=== PATIENT | male | born 1975 | race Two or more races ===

== ENCOUNTER 2017-03-04 21:55 | Emergency (ER) | payer MEDICAID ==
[~2017-03-04] VITALS: Ht 172.7 cm; Wt 81.6 kg
[~2017-03-04 21:55] MED LIST: ASPIRIN81 MG ORAL; ATORVASTATIN CA10 MG ORAL; IBUPROFEN600 MG ORAL; METFORMIN HCL500 M1 ORAL; NOVOLOG100 UNIT/3 SUBQ
[2017-03-04 22:03] VITALS: BP 121/78
[2017-03-04] MEDS ORDERED: ALBUTEROL2.5 MG/3 M INH (22:04)
[2017-03-04] MEDS ORDERED: Albuterol/Ipratropium 3ml neb HHN ONE (22:30)
[2017-03-04] MEDS ORDERED: ALBUTEROL SULF8.5 GM INH (23:09)
[2017-03-04] MEDS ORDERED: PREDNISONE20 MG ORAL (23:09)
--- NOTE | 2017-03-04 23:10 | Emergency Room Report ---
History of Present Illness General Chief Complaint: Dyspnea/Respdistress Source: Patient Present Illness HPI Is a 41-year-old male with a history of asthma. He is out of his inhaler for the last 2 days. Presents with chief complaint of shortness of breath and wheezing. Onset tonight. Also with chest tightness and pain. No nausea no vomiting. Worse with exertion. Admits to daily use of methamphetamine. Allergies: Coded Allergies: No Known Allergies (Unverified , 09/28/12) Patient History Past Medical History: see triage record, old chart reviewed, asthma Past Surgical History: none Pertinent Family History: none Social History: Reports: smoking, drug use Immunizations: other Reviewed Nursing Documentation: PMH: Agreed, PSxH: Agreed Nursing Documentation-PMH Hx Asthma: Yes Hx Diabetes: Yes Review of Systems Eye: Denies: eye pain, blurred vision ENT: Denies: ear pain, nose congestion, throat swelling Respiratory: Reports: cough, shortness of breath, wheezing Cardiovascular: Reports: chest pain, Denies: palpitations Gastrointestinal: Denies: abdominal pain, diarrhea, nausea, vomiting Musculoskeletal: Denies: back pain, joint pain Skin: Denies: rash Neurological: Denies: headache, numbness Endocrine: Denies: increased thirst, increased urine Hematologic/Lymphatic: Denies: easy bruising All Other Systems: negative except mentioned in HPI Physical Exam Vital Signs Date Time Temp Pulse Resp B/P (MAP) Pulse Ox O2 Delivery O2 Flow Rate FiO2 03/04/17 22:01 98.4 92 13 121/78 99 Room Air vitals normal Sp02 EP Interpretation: reviewed, normal General Appearance: well appearing, no apparent distress, alert Head: normocephalic, atraumatic Eyes: bilateral eye PERRL, bilateral eye EOMI ENT: hearing grossly normal, normal pharynx Neck: full range of motion, supple, no meningismus Respiratory: chest non-tender, accessory muscle use, wheezing Cardiovascular #1: regular rate, rhythm, no murmur Gastrointestinal: normal bowel sounds, non tender, no mass, no organomegaly, no bruit, non-distended Musculoskeletal: back normal, gait/station normal, normal range of motion Psychiatric: mood/affect normal Skin: warm/dry Medical Decision Making Diagnostic Impression: Primary Impression: Asthma exacerbation Qualified Codes: J45.21 - Mild intermittent asthma with (acute) exacerbation Additional Impression: Methamphetamine abuse ER Course Patient presents with asthma exacerbation secondary to drug abuse. No evidence of ACS, PE, pneumonia, pneumothorax name a few. Better after breathing treatment. Chest x-rays clear. We'll discharge home. Chest X-Ray Diagnostic Results Chest X-Ray Diagnostic Results : Chest X-Ray Ordered: Yes # of Views/Limited/Complete: 1 View Indication: Shortness of Breath EP Interpretation: Yes Interpretation: no consolidation, no effusion, no pneumothorax, no acute cardiopulmonary disease Impression: No acute disease Electronically Signed by: Bob Cornell MD Last Vital Signs Date Time Temp Pulse Resp B/P (MAP) Pulse Ox O2 Delivery O2 Flow Rate FiO2 03/04/17 22:35 91 19 100 Room Air 03/04/17 22:03 98.4 121/78 Status: improved Disposition: HOME, SELF-CARE Condition: Stable Scripts Prednisone* (PREDNISONE*) 20 Mg Tablet 60 MG ORAL DAILY, #12 TAB Prov: BOB CORNELL M.D. 03/04/17 Albuterol Sulfate* (ALBUTEROL SULFATE MDI*) 8.5 Gm Hfa.aer.ad 2 PUFF INH Q4H Y for cough/wheezing, #1 EA 0 Refills Prov: BOB CORNELL M.D. 03/04/17 Additional Instructions: Stop using drugs. Followup with your Dr. in 7 days. Return if worse. BOB CORNELL M.D. Mar 04, 2017 23:10
[2017-03-04] MEDS ORDERED: Albuterol ud Inhalation HHN ONE (23:15)
[2017-03-04 23:50] VITALS: BP 105/69
--- NOTE | 2017-03-05 09:19 | Diagnostic Imaging Report ---
Indication: Shortness of breath Technique: One view of the chest Comparison: 05/31/2005 Findings: Calcified granuloma projects in the left midlung periphery. Lungs and pleural spaces are otherwise clear. Heart size is normal Impression: Evidence old granulomatous disease No acute process
== END 2017-03-04 23:50 | disposition home or self-care (01) ==
LOC: EMR 22:15
DX: J45.901 Unspecified asthma with (acute) exacerbation (principal); F15.10 Other stimulant abuse, uncomplicated; E11.9 Type 2 diabetes mellitus without complications
CPT/HCPCS: 71045; 82962; 94640; 94664; 99284; J7512; J7620

== ENCOUNTER 2017-07-24 22:20 | Emergency (ER) | payer MEDICAID ==
[~2017-07-24] VITALS: Ht 172.7 cm; Wt 87.1 kg
[~2017-07-24 22:20] MED LIST changes: +ALBUTEROL SULF8.5 GM INH; +ALBUTEROL2.5 MG/3 M INH; +PREDNISONE20 MG ORAL
[2017-07-24 22:35] VITALS: BP 111/60
--- NOTE | 2017-07-24 22:41 | Emergency Room Report ---
History of Present Illness General Chief Complaint: Headache Source: Patient, Medical Record Present Illness HPI Is a 41-year-old male with no past medical history. He presents with chief complaint of headache. His been ongoing for a week on and off. Initially he is on the right side and now moving to the left into the back. He has not taking any medicine for it he has no nausea no vomiting. No fever chills. Occasional cough. He complaining of pain of severe. No focal deficit. No slurred speech. Allergies: Coded Allergies: No Known Allergies (Unverified , 09/28/12) Patient History Past Medical History: see triage record, old chart reviewed Past Surgical History: none Pertinent Family History: none Social History: Denies: smoking Immunizations: other Reviewed Nursing Documentation: PMH: Agreed; PSxH: Agreed Nursing Documentation-PMH Past Medical History: No History, Except For Hx Asthma: Yes Hx Diabetes: Yes Review of Systems Eye: Denies: eye pain, blurred vision ENT: Denies: ear pain, nose congestion, throat swelling Respiratory: Denies: cough, shortness of breath Cardiovascular: Denies: chest pain, palpitations Gastrointestinal: Denies: abdominal pain, diarrhea, nausea, vomiting Musculoskeletal: Denies: back pain, joint pain Skin: Denies: rash Neurological: Reports: headache; Denies: numbness Endocrine: Denies: increased thirst, increased urine Hematologic/Lymphatic: Denies: easy bruising All Other Systems: negative except mentioned in HPI Physical Exam Vital Signs Date Time Temp Pulse Resp B/P (MAP) Pulse Ox O2 Delivery O2 Flow Rate FiO2 07/24/17 22:24 98.5 86 16 111/60 97 Room Air 98.4 vitals normal Sp02 EP Interpretation: reviewed, normal General Appearance: well appearing, no apparent distress, alert Head: normocephalic, atraumatic Eyes: bilateral eye PERRL, bilateral eye EOMI ENT: hearing grossly normal, normal pharynx Neck: full range of motion, supple, no meningismus Respiratory: chest non-tender, lungs clear, normal breath sounds Cardiovascular #1: regular rate, rhythm, no murmur Gastrointestinal: normal bowel sounds, non tender, no mass, no organomegaly, no bruit, non-distended Musculoskeletal: back normal, gait/station normal, normal range of motion Psychiatric: mood/affect normal Skin: warm/dry Medical Decision Making Diagnostic Impression: Primary Impression: Tension-type headache ER Course Patient presents with a headache. Even though he said it severe, he is walking around smiling without any distress. His most likely tension in nature. I see no evidence of meningitis. He has no nuchal rigidity. He has no focal deficit. Patient wanted a CT scan of his head. I explained to him that there is no indication for CT head. He has no evidence of any bleed or meningitis. He has no evidence of any focal deficit. I explained to the patient that the risk of radiation from a CAT scan is higher than the benefit of a normal exam. If he still concerned about his headache, I did order the CT head. Patient was not happy with it and got up and ripped off his ID band and left. Last Vital Signs Date Time Temp Pulse Resp B/P (MAP) Pulse Ox O2 Delivery O2 Flow Rate FiO2 07/24/17 22:24 98.5 86 16 111/60 97 Room Air 98.4 Status: unchanged Disposition: HOME, SELF-CARE Condition: Stable ITALIA OLSON M.D. Jul 24, 2017 22:41
[2017-07-24 22:42] VITALS: BP 111/60
== END 2017-07-24 22:42 | disposition home or self-care (01) ==
LOC: EMR 22:38
DX: G44.209 Tension-type headache, unspecified, not intractable (principal); E11.9 Type 2 diabetes mellitus without complications
CPT/HCPCS: 99283

== ENCOUNTER 2018-01-03 19:52 | Emergency (ER) | payer MEDICAID ==
[~2018-01-03] VITALS: Ht 172.7 cm; Wt 83.9 kg
[2018-01-03 20:15] VITALS: BP 100/65
[2018-01-03] MEDS ORDERED: Promethazine/Codeine 5ml UD ORAL ONE (20:30)
[2018-01-03] MEDS: Albuterol ud Inhalation HHN SCH ×3 (20:33→21:24)
[2018-01-03] MEDS: Ipratropium 0.02% Inh Soln 2.5ml UD HHN SCH ×3 (20:34→21:24)
[2018-01-03] MEDS ORDERED: Terbutaline 1mg/ml Inj SUBQ ONE (21:15)
--- NOTE | 2018-01-03 21:21 | Emergency Room Report ---
History of Present Illness General Chief Complaint: Flu Like Symptoms Source: Patient (Alex Oliveira MD) Present Illness HPI 42-year-old male presents ED for evaluation. Notes cough and wheezing for the last 3 days. States he recently got the flu shot. History of asthma. States he's had a productive cough also complaining of left ear pain. Pain with coughing. Dull, 8 out of 10, nonradiating. Denies fevers or chills. Denies sick contacts or recent travel. Denies smoking. No other aggravating relieving factors. Denies any other associated symptoms (Alex Oliveira MD) Allergies: Coded Allergies: No Known Allergies (Unverified , 09/28/12) Patient History Past Medical History: DM, asthma Past Surgical History: none Pertinent Family History: none Social History: Denies: smoking, alcohol use, drug use Immunizations: UTD Reviewed Nursing Documentation: PMH: Agreed; PSxH: Agreed (Alex Oliveira MD) Nursing Documentation-PMH Hx Cardiac Problems: Yes - rheumatic fever Hx Asthma: Yes Hx Diabetes: Yes (Alex Oliveira MD) Review of Systems All Other Systems: negative except mentioned in HPI (Alex Oliveira MD) Physical Exam Vital Signs Date Time Temp Pulse Resp B/P (MAP) Pulse Ox O2 Delivery O2 Flow Rate FiO2 01/03/18 20:00 98.2 94 16 100/65 97 Room Air 01/03/18 20:24 21 Sp02 EP Interpretation: reviewed, normal General Appearance: alert, GCS 15, non-toxic, mild distress Head: normocephalic, atraumatic Eyes: bilateral eye normal inspection, bilateral eye PERRL ENT: hearing grossly normal, normal pharynx, no angioedema, normal voice, other - L TM bulging Neck: full range of motion, supple/symm/no masses Respiratory: chest non-tender, decreased breath sounds, speaking full sentences , wheezing Cardiovascular #1: no edema, tachycardia Cardiovascular #2: 2+ carotid (R), 2+ carotid (L), 2+ radial (R), 2+ radial (L) , 2+ dorsalis pedis (R), 2+ dorsalis pedis (L) Gastrointestinal: normal bowel sounds, non tender, soft, non-distended, no guarding, no rebound Rectal: deferred Genitourinary: normal inspection, no CVA tenderness Musculoskeletal: back normal, gait/station normal, normal range of motion, non- tender Neurologic: alert, oriented x3, responsive, motor strength/tone normal, sensory intact, speech normal Psychiatric: judgement/insight normal, memory normal, mood/affect normal, no suicidal/homicidal ideation Reflexes: 3+ bicep (R), 3+ bicep (L), 3+ tricep (R), 3+ tricep (L), 3+ knee (R) , 3+ knee (L) Skin: normal color, no rash, warm/dry, well hydrated Lymphatic: no adenopathy (Alex Oliveira MD) Medical Decision Making Diagnostic Impression: Primary Impression: Bronchospasm ER Course Please see above. Cough much less. Azithromycin given. Laboratory Tests Test 01/03/18 21:21 White Blood Count 6.0 K/UL (4.8-10.8) Red Blood Count 5.29 M/UL (4.70-6.10) Hemoglobin 15.6 G/DL (14.2-18.0) Hematocrit 44.7 % (42.0-52.0) Mean Corpuscular Volume 84 FL (80-99) Mean Corpuscular Hemoglobin 29.4 PG (27.0-31.0) Mean Corpuscular Hemoglobin Concent 34.8 G/DL (32.0-36.0) Red Cell Distribution Width 10.3 % (11.6-14.8) L Platelet Count 197 K/UL (150-450) Mean Platelet Volume 8.2 FL (6.5-10.1) Neutrophils (%) (Auto) 56.3 % (45.0-75.0) Lymphocytes (%) (Auto) 29.4 % (20.0-45.0) Monocytes (%) (Auto) 11.2 % (1.0-10.0) H Eosinophils (%) (Auto) 2.0 % (0.0-3.0) Basophils (%) (Auto) 1.1 % (0.0-2.0) Urine Color Pale yellow Urine Appearance Slightly cloudy Urine pH 6 (4.5-8.0) Urine Specific [place] 1.015 (1.005-1.035) Urine Protein 1+ (NEGATIVE) H Urine Glucose (UA) 4+ (NEGATIVE) H Urine Ketones Negative (NEGATIVE) Urine Blood Negative (NEGATIVE) Urine Nitrite Negative (NEGATIVE) Urine Bilirubin Negative (NEGATIVE) Urine Urobilinogen Normal MG/DL (0.0-1.0) Urine Leukocyte Esterase 1+ (NEGATIVE) H Urine RBC 0 /HPF (0 - 0) Urine WBC 2-4 /HPF (0 - 0) Urine Squamous Epithelial Cells None /LPF (NONE/OCC) Urine Bacteria Occasional /HPF (NONE) Urine Mucus Few /LPF (NONE/OCC) H Sodium Level 138 MMOL/L (136-145) Potassium Level 3.4 MMOL/L (3.5-5.1) L Chloride Level 101 MMOL/L (98-107) Carbon Dioxide Level 27 MMOL/L (21-32) Anion Gap 10 mmol/L (5-15) Blood Urea Nitrogen 12 mg/dL (7-18) Creatinine 0.9 MG/DL (0.55-1.30) Estimate Glomerular Filtration Rate > 60 mL/min (>60) Glucose Level 153 MG/DL (74-106) H Calcium Level 8.2 MG/DL (8.5-10.1) L Total Bilirubin 0.5 MG/DL (0.2-1.0) Aspartate Amino Transferase (AST) 23 U/L (15-37) Alanine Aminotransferase (ALT) 34 U/L (12-78) Alkaline Phosphatase 79 U/L (46-116) Total Protein 7.4 G/DL (6.4-8.2) Albumin 3.7 G/DL (3.4-5.0) Globulin 3.7 g/dL Albumin/Globulin Ratio 1.0 (1.0-2.7) (Alexandro Downing MD) Chest X-Ray Diagnostic Results Chest X-Ray Diagnostic Results : Chest X-Ray Ordered: Yes # of Views/Limited/Complete: 1 View Indication: Shortness of Breath EP Interpretation: Yes Interpretation: no effusion, no pneumothorax, other - interstitial prominence Impression: Other PA Scribe Text Electronically signed by Alexandro Downing MD (Alexandro Downing MD) Last Vital Signs Date Time Temp Pulse Resp B/P (MAP) Pulse Ox O2 Delivery O2 Flow Rate FiO2 01/03/18 20:36 94 17 100 Room Air 21 01/03/18 20:15 98.2 100/65 ([place],Alex MD) Last Vital Signs Date Time Temp Pulse Resp B/P (MAP) Pulse Ox O2 Delivery O2 Flow Rate FiO2 01/03/18 23:53 98.1 81 16 110/76 99 Room Air 21 Status: improved (Alexandro Downing MD) Disposition: HOME, SELF-CARE Condition: Improved Scripts Guaifenesin/Codeine Phos* (ROBITUSSIN AC*) 118 Ml Liquid 5 ML ORAL Q6H PRN for For Cough, #90 ML 0 Refills Prov: Alexandro Downing MD 01/03/18 Azithromycin* (ZITHROMAX*) 250 Mg Tablet 250 MG ORAL DAILY, #4 TAB Prov: Alexandro Downing MD 01/03/18 Prednisone* (PREDNISONE*) 20 Mg Tablet 40 MG ORAL DAILY, #10 TAB Prov: Alexandro Downing MD 01/03/18 Referrals: [facility]ERR[facility] (PCP) Alex Oliveira MD Jan 03, 2018 21:21 Alexandro Downing MD Jan 03, 2018 23:37
[2018-01-03] MEDS ORDERED: Lidocaine 2% 100mg/5ml Carp INJ STA (21:22)
[2018-01-03] MEDS ORDERED: Acetaminophen 500mg (ES) tab ORAL ONE (21:30)
[2018-01-03 21:31] LABS: APPEARANCE,URINE SLIGHTLY CLOUDY; BILIRUBIN, URINE NEGATIVE (NEGATIVE); COLOR,URINE PALE YELLOW; GLUCOSE, URINE (UA) 4+ (NEGATIVE); KETONES,URINE NEGATIVE (NEGATIVE); LEUKOCYTE ESTERASE ,URINE 1+ (NEGATIVE); NITRITE,URINE NEGATIVE (NEGATIVE); PH,URINE 6 (4.5-8.0); PROTEIN,URINE 1+ (NEGATIVE); UROBILINOGEN,URINE NORMAL MG/DL (0.0-1.0)
[2018-01-03 21:34] LABS: BASOPHILS % (AUTO) 1.1 % (0.0-2.0); HEMATOCRIT 44.7 % (42.0-52.0); HEMOGLOBIN 15.6 G/DL (14.2-18.0); LYMPHOCYTES % (AUTO) 29.4 % (20.0-45.0); MEAN CORPUSCULAR VOLUME 84 FL (80-99); MONOCYTES % (AUTO) 11.2 % (1.0-10.0); NEUTROPHILS % (AUTO) 56.3 % (45.0-75.0); PLATELET COUNT 197 K/UL (150-450); RED BLOOD COUNT 5.29 M/UL (4.70-6.10); RED CELL DISTRIBUTION WIDTH 10.3 % (11.6-14.8)
[2018-01-03 21:41] LABS: ANION GAP 10 mmol/L (5-15); BLOOD UREA NITROGEN 12 mg/dL (7-18); CALCIUM 8.2 MG/DL (8.5-10.1); CARBON DIOXIDE 27 MMOL/L (21-32); CHLORIDE 101 MMOL/L (98-107); CREATININE 0.9 MG/DL (0.55-1.30); POTASSIUM 3.4 MMOL/L (3.5-5.1); SODIUM 138 MMOL/L (136-145)
[2018-01-03 21:45] LABS: ALANINE AMINOTRANSFERASE 34 U/L (12-78); ALBUMIN 3.7 G/DL (3.4-5.0); ALKALINE PHOSPHATASE 79 U/L (46-116); ASPARTATE AMINO TRANSFERASE 23 U/L (15-37); BILIRUBIN,TOTAL 0.5 MG/DL (0.2-1.0)
[2018-01-03 22:15] VITALS: BP 108/72
[2018-01-03] MEDS ORDERED: Azithromycin 250mg tab ORAL ONE (23:15)
[2018-01-03] MEDS ORDERED: PREDNISONE20 MG ORAL (23:42)
[2018-01-03] MEDS ORDERED: ZITHROMAX250 MG ORAL (23:42)
[2018-01-03] MEDS ORDERED: GUAIFENESIN-CO118 M1 ORAL (23:42)
[2018-01-03 23:52] VITALS: BP 110/76
[2018-01-03 23:53] VITALS: BP 110/76
--- NOTE | 2018-01-04 14:01 | Diagnostic Imaging Report ---
Indication: Cough Technique: One view of the chest Comparison: 03/04/2017 Findings: There is minimal bilateral interstitial prominence and central bronchial wall thickening. No focal airspace consolidation. Normal heart size. The pleural spaces are clear. Left lung calcified granuloma again demonstrated, less apparent than on the prior study Impression: Mild central interstitial prominence and bronchial wall thickening, suspect on the basis of bronchitis changes. Interstitial edema also a possibility. Correlate with clinical findings
== END 2018-01-03 23:46 | disposition home or self-care (01) ==
LOC: EMR 20:30
DX: J45.909 Unspecified asthma, uncomplicated (principal); E11.9 Type 2 diabetes mellitus without complications; H92.02 Otalgia, left ear
CPT/HCPCS: 36415; 71045; 80053; 81003; 85025; 94640; 94664; 96372; 96374; 99284; J7512; Q0144

== ENCOUNTER 2018-03-23 07:38 | Emergency (ER) | payer MEDICAID ==
[~2018-03-23] VITALS: Ht 167.6 cm; Wt 72.6 kg
[~2018-03-23 07:38] MED LIST changes: +GUAIFENESIN-CO118 M1 ORAL; +ZITHROMAX250 MG ORAL
[2018-03-23] MEDS ORDERED: JANUVIA25 MG ORAL (07:49)
[2018-03-23] MEDS ORDERED: NOVOLIN 70100 UNIT/2 SQ (07:49)
--- NOTE | 2018-03-23 07:53 | NUR ---
ED Nurse Note: Pt came into the ER w/ complaints of abdominal pain x 2 weeks. Pt states it is in the RUQ and radiates to the right upper chest. Rating the pain a 10/10. Denies injury or n,v,d. Hx of DM and asthma. A + O x4. Ambulatory. Skin warm to touch.
[2018-03-23 07:54] VITALS: BP 134/84
[2018-03-23] MEDS ORDERED: Ketorolac 30mg Inj IV ONE (08:00)
--- NOTE | 2018-03-23 08:12 | NUR ---
ED Nurse Note: Blood has been collected and sent to lab.
[2018-03-23 08:24] LABS: BASOPHILS % (AUTO) 1.4 % (0.0-2.0); EOSINOPHILS % (AUTO) 3.4 % (0.0-3.0); HEMATOCRIT 46.6 % (42.0-52.0); LYMPHOCYTES % (AUTO) 29.2 % (20.0-45.0); MEAN CORPUSCULAR VOLUME 85 FL (80-99); MONOCYTES % (AUTO) 5.4 % (1.0-10.0); NEUTROPHILS % (AUTO) 60.7 % (45.0-75.0); PLATELET COUNT 237 K/UL (150-450); RED BLOOD COUNT 5.51 M/UL (4.70-6.10); RED CELL DISTRIBUTION WIDTH 10.7 % (11.6-14.8); WHITE BLOOD COUNT 7.1 K/UL (4.8-10.8)
[2018-03-23 08:30] LABS: ANION GAP 11 mmol/L (5-15); BLOOD UREA NITROGEN 12 mg/dL (7-18); CALCIUM 9.1 MG/DL (8.5-10.1); CARBON DIOXIDE 25 MMOL/L (21-32); CHLORIDE 100 MMOL/L (98-107); CREATININE 0.9 MG/DL (0.55-1.30); SODIUM 136 MMOL/L (136-145)
--- NOTE | 2018-03-23 08:32 | NUR ---
ED Nurse Note: US at the bedside.
[2018-03-23 08:35] LABS: ALANINE AMINOTRANSFERASE 36 U/L (12-78); ALBUMIN 3.8 G/DL (3.4-5.0); ALBUMIN/GLOBULIN RATIO 1.2 (1.0-2.7); ALKALINE PHOSPHATASE 85 U/L (46-116); ASPARTATE AMINO TRANSFERASE 14 U/L (15-37); BILIRUBIN,TOTAL 1.2 MG/DL (0.2-1.0)
[2018-03-23 08:43] LABS: APPEARANCE,URINE CLEAR; BILIRUBIN, URINE NEGATIVE (NEGATIVE); COLOR,URINE PALE YELLOW; GLUCOSE, URINE (UA) NEGATIVE (NEGATIVE); KETONES,URINE NEGATIVE (NEGATIVE); LEUKOCYTE ESTERASE ,URINE NEGATIVE (NEGATIVE); NITRITE,URINE NEGATIVE (NEGATIVE); PH,URINE 6 (4.5-8.0); PROTEIN,URINE NEGATIVE (NEGATIVE); UROBILINOGEN,URINE NORMAL MG/DL (0.0-1.0)
[2018-03-23 08:43] LABS: BILIRUBIN,DIRECT 0.2 MG/DL (0.0-0.3)
--- NOTE | 2018-03-23 09:04 | NUR ---
ED Nurse Note: Xray at the bedside.
--- NOTE | 2018-03-23 09:07 | Emergency Room Report ---
History of Present Illness General Chief Complaint: Abdominal Pain Source: Patient, Medical Record Present Illness HPI Patient presents emergency department today complaining of right upper quadrant abdominal pain radiating into his chest for last couple weeks. The pain is intermittent worse with movement worse with deep inspiration. Worse with coughing. Patient denies any shortness of breath. Denies nausea or vomiting. States that his brother has history of cancer and is concerned that he might be having cancer. He states that his visit with his primary care physician. For another couple weeks which is why came here for further evaluation. No other complaints are noted. Symptoms noted to be moderate to severe. Patient denies any leg pain leg swelling no history DVT or pulmonary embolus. No other modifying factors. No other associated signs and symptoms. No other complaints were noted. Allergies: Coded Allergies: No Known Allergies (Unverified , 09/28/12) Patient History Past Medical History: DM, asthma Past Surgical History: none Pertinent Family History: none Social History: Denies: smoking, alcohol use, drug use Reviewed Nursing Documentation: PMH: Agreed; PSxH: Agreed Nursing Documentation-PMH Past Medical History: No History, Except For Hx Cardiac Problems: No - rheumatic fever Hx Hypertension: No - high cholesterol Hx Asthma: Yes Hx Diabetes: Yes Review of Systems All Other Systems: negative except mentioned in HPI Physical Exam Vital Signs Date Time Temp Pulse Resp B/P (MAP) Pulse Ox O2 Delivery O2 Flow Rate FiO2 03/23/18 07:40 97.5 80 16 126/87 95 Room Air 03/23/18 07:54 97 Sp02 EP Interpretation: reviewed, normal General Appearance: normal inspection, well appearing, no apparent distress, alert Head: atraumatic Eyes: bilateral eye normal inspection ENT: normal ENT inspection, hearing grossly normal, normal voice Neck: normal inspection, full range of motion, supple, no bony tend Respiratory: normal inspection, lungs clear, normal breath sounds, no respiratory distress, no retraction, no wheezing Cardiovascular #1: regular rate, rhythm, no edema Gastrointestinal: normal inspection, normal bowel sounds, soft, no guarding, no hernia, tenderness - Right upper quadrant and right anterior chest wall Genitourinary: no CVA tenderness Musculoskeletal: normal inspection, back normal, normal range of motion Neurologic: normal inspection, alert, responsive, speech normal Psychiatric: normal inspection, judgement/insight normal, mood/affect normal Skin: normal inspection, normal color, no rash Medical Decision Making Diagnostic Impression: Primary Impression: Abdominal pain Additional Impression: Chest wall pain ER Course Patient presented to the emergency department today complaining of chest pain. Differential diagnoses include acute coronary syndrome, pulmonary embolism, pneumothorax, chest wall pain, pleurisy, pericarditis, acute anxiety reaction just to name a few. Given the severity of the patient's presentation I felt this is a highly complex patient. This patient required extensive workup. CBC , chemistry, EKG, chest x-ray, cardiac enzymes, liver profile were all obtained. 12-lead EKG performed for nontraumatic chest pain. RS documentation: EKG was performed. Please refer to below for interpretation. Patient had CBC and chemistry obtained. Both of which were normal. Patient's cardiac enzymes also normal. Patient had normal chest x-ray. Patient's EKG and rhythm strip are also normal. Patient presents to the emergency department today complaining of abdominal pain. Differential considerations include acute pancreatitis, cholecystitis, gastritis, hepatitis, appendicitis just to name a few. Exam is benign. Workup is negative. Ultrasound is negative. I felt the symptoms are likely secondary chest wall pain although gastritis is a possibility. D-dimer is negative. We'll give prescription for pain medication Zantac recommend close outpatient follow-up and outpatient endoscopy necessary.Patient is advised to follow up with primary doctor in 2-3 days and return the emergency room for any worsening symptoms and as needed. Labs Test 03/23/18 08:00 03/23/18 08:16 03/23/18 08:25 White Blood Count 7.1 K/UL (4.8-10.8) Red Blood Count 5.51 M/UL (4.70-6.10) Hemoglobin 17.0 G/DL (14.2-18.0) Hematocrit 46.6 % (42.0-52.0) Mean Corpuscular Volume 85 FL (80-99) Mean Corpuscular Hemoglobin 30.9 PG (27.0-31.0) Mean Corpuscular Hemoglobin Concent 36.6 G/DL (32.0-36.0) Red Cell Distribution Width 10.7 % (11.6-14.8) Platelet Count 237 K/UL (150-450) Mean Platelet Volume 8.6 FL (6.5-10.1) Neutrophils (%) (Auto) 60.7 % (45.0-75.0) Lymphocytes (%) (Auto) 29.2 % (20.0-45.0) Monocytes (%) (Auto) 5.4 % (1.0-10.0) Eosinophils (%) (Auto) 3.4 % (0.0-3.0) Basophils (%) (Auto) 1.4 % (0.0-2.0) Sodium Level 136 MMOL/L (136-145) Potassium Level 4.0 MMOL/L (3.5-5.1) Chloride Level 100 MMOL/L (98-107) Carbon Dioxide Level 25 MMOL/L (21-32) Anion Gap 11 mmol/L (5-15) Blood Urea Nitrogen 12 mg/dL (7-18) Creatinine 0.9 MG/DL (0.55-1.30) Estimat Glomerular Filtration Rate > 60 mL/min (>60) Glucose Level 219 MG/DL (74-106) Calcium Level 9.1 MG/DL (8.5-10.1) Total Bilirubin 1.2 MG/DL (0.2-1.0) Direct Bilirubin 0.2 MG/DL (0.0-0.3) Aspartate Amino Transf (AST/SGOT) 14 U/L (15-37) Alanine Aminotransferase (ALT/SGPT) 36 U/L (12-78) Alkaline Phosphatase 85 U/L (46-116) Troponin I 0.000 ng/mL (0.000-0.056) Total Protein 7.1 G/DL (6.4-8.2) Albumin 3.8 G/DL (3.4-5.0) Globulin 3.3 g/dL Albumin/Globulin Ratio 1.2 (1.0-2.7) Lipase 143 U/L (73-393) D-Dimer < 0.19 mg/L FEU Urine Color Pale yellow Urine Appearance Clear Urine pH 6 (4.5-8.0) Urine Specific [place] 1.020 (1.005-1.035) Urine Protein Negative (NEGATIVE) Urine Glucose (UA) Negative (NEGATIVE) Urine Ketones Negative (NEGATIVE) Urine Blood Negative (NEGATIVE) Urine Nitrite Negative (NEGATIVE) Urine Bilirubin Negative (NEGATIVE) Urine Urobilinogen Normal MG/DL (0.0-1.0) Urine Leukocyte Esterase Negative (NEGATIVE) EKG Diagnostic Results Rate: normal Rhythm: NSR ST Segments: no acute changes Rhythm Strip Diag. Results EP Interpretation: yes Rate: 77 Rhythm: NSR, no PVC's, no ectopy Chest X-Ray Diagnostic Results Chest X-Ray Diagnostic Results : Chest X-Ray Ordered: Yes # of Views/Limited/Complete: 1 View Indication: Chest Pain EP Interpretation: Yes Interpretation: no consolidation, no effusion, no pneumothorax, no acute cardiopulmonary disease Impression: No acute disease Electronically Signed by: Electronically signed by Juan Luis Smith MD CT/MRI/US Diagnostic Results CT/MRI/US Diagnostic Results : Imaging Test Ordered: Abdominal ultrasound negative Last Vital Signs Date Time Temp Pulse Resp B/P (MAP) Pulse Ox O2 Delivery O2 Flow Rate FiO2 03/23/18 07:54 97.6 78 18 134/84 97 Room Air 03/23/18 07:54 97 Status: improved Disposition: HOME, SELF-CARE Condition: Stable Scripts Hydrocodone Bit/Acetaminophen 5-325* (NORCO 5-325*) 1 Each Tablet 1 TAB ORAL Q6H PRN for For Pain, #10 TAB 0 Refills Prov: Juan Luis Smith MD 03/23/18 Ranitidine Hcl* (ZANTAC*) 150 Mg Tablet 150 MG ORAL DAILY, #30 TAB 0 Refills Prov: Juan Luis Smith MD 03/23/18 Referrals: [facility] S[facility]AN[facility],REFERRING (PCP) JuanL uis Smith MD Mar 23, 2018 09:07
[2018-03-23] MEDS ORDERED: ZANTAC150 MG ORAL (09:14)
[2018-03-23] MEDS ORDERED: NORCO 5-325 TA1 EACH ORAL (09:14)
[2018-03-23 09:20] VITALS: BP 114/70
--- NOTE | 2018-03-23 09:21 | NUR ---
ED Nurse Note: Discharge instructions given to pt. Answered all questions. Verbalized understanding. No acute distress noted. ID band and IV site removed. Left ER w/ a steady gait and all belongings.
--- NOTE | 2018-03-23 12:13 | Diagnostic Imaging Report ---
Indication: Abdominal pain Technique: Ko-scale and duplex images of the upper abdomen were obtained. Doppler interrogation of the pancreatic and hepatic vessels Comparison: none Findings: Gallbladder is unremarkable, without stones, wall thickening, nor pericholecystic fluid. Sonographic Francis's sign is negative. Common bile duct measures 2 mm in diameter. No intrahepatic biliary ductal dilatation. Liver demonstrates diffusely increased echogenicity, consistent with diffuse hepatocellular disease, most likely fatty change. No focal abnormality Portal vein and hepatic veins are patent. Pancreas is incompletely visualized due to overlying bowel gas, visualized portions are unremarkable. Spleen is unremarkable. Left kidney measures 12.7 cm in length. Right kidney measures 12 point cm length. Both kidneys demonstrate normal echogenicity. There is no hydronephrosis. No focal abnormality . Abdominal aorta is partially obscured by bowel gas, visualized portions are non-aneurysmal . Impression: Liver demonstrates diffusely increased echogenicity, consistent with diffuse hepatocellular disease, most likely fatty change. Negative for gallstones or dilated ducts Note limited visualization of the pancreas and abdominal aorta
--- NOTE | 2018-03-23 12:56 | Diagnostic Imaging Report ---
Indication: , Technique: One view of the chest Comparison: 01/03/2018 Findings: Lungs and pleural spaces are clear. Heart size is normal . No significant interim change Impression: No acute process This agrees with the preliminary interpretation provided by the emergency room physician
--- NOTE | 2018-03-24 17:11 | Cardiology Report ---
APPROVED REPORT EKG Measurement Heart [id number] Normal sinus rhythm Normal ECG
== END 2018-03-23 09:22 | disposition home or self-care (01) ==
LOC: EMR 07:58
DX: R10.11 Right upper quadrant pain (principal); R07.89 Other chest pain; E11.9 Type 2 diabetes mellitus without complications; J45.909 Unspecified asthma, uncomplicated
CPT/HCPCS: 36415; 71045; 76700; 80053; 81003; 82248; 83690; 84484; 85025; 85379; 93005; 96374; 96375; 99284; J1885; J2405

== ENCOUNTER 2018-12-19 17:55 | Emergency (ER) | payer MEDICAID ==
[~2018-12-19] VITALS: Ht 172.7 cm; Wt 90.7 kg
[~2018-12-19 17:55] MED LIST changes: +JANUVIA25 MG ORAL; +NORCO 5-325 TA1 EACH ORAL; +NOVOLIN 70100 UNIT/2 SQ; +ZANTAC150 MG ORAL
[2018-12-19 18:03] VITALS: BP 115/76
--- NOTE | 2018-12-19 18:13 | NUR ---
ED Nurse Note: PT FROM HOME WALKED IN DUE TO RIGHT LOWER BACK PAIN X 2 DAYS. DENIES INJURY/TRAUMA. AAOX 4 AND AMBULATORY.
[2018-12-19] MEDS ORDERED: Omnipaue 350mg/ml 100ml vial INJ PRN (18:30)
[2018-12-19] MEDS ORDERED: Omnipaque-300 100ml vial INJ PRN ×2 (18:30→19:45)
--- NOTE | 2018-12-19 18:50 | NUR ---
ED Nurse Note: PT TAKEN TO CT VIA WHEELCHAIR.
[2018-12-19 19:09] LABS: APPEARANCE,URINE CLEAR; BASOPHILS % (AUTO) 0.7 % (0.0-2.0); BILIRUBIN, URINE NEGATIVE (NEGATIVE); EOSINOPHILS % (AUTO) 3.1 % (0.0-3.0); GLUCOSE, URINE (UA) NEGATIVE (NEGATIVE); HEMATOCRIT 45.6 % (42.0-52.0); HEMOGLOBIN 16.3 G/DL (14.2-18.0); KETONES,URINE NEGATIVE (NEGATIVE); LEUKOCYTE ESTERASE ,URINE NEGATIVE (NEGATIVE); LYMPHOCYTES % (AUTO) 15.9 % (20.0-45.0); MEAN CORPUSCULAR VOLUME 85 FL (80-99); NEUTROPHILS % (AUTO) 75.2 % (45.0-75.0); NITRITE,URINE NEGATIVE (NEGATIVE); PH,URINE 8 (4.5-8.0); PLATELET COUNT 233 K/UL (150-450); PROTEIN,URINE NEGATIVE (NEGATIVE); RED BLOOD COUNT 5.39 M/UL (4.70-6.10); RED CELL DISTRIBUTION WIDTH 10.5 % (11.6-14.8); UROBILINOGEN,URINE 1 MG/DL (0.0-1.0); WHITE BLOOD COUNT 7.4 K/UL (4.8-10.8)
[2018-12-19 19:15] LABS: COLOR,URINE YELLOW
--- NOTE | 2018-12-19 19:17 | NUR ---
HAND-OFF: Report given to LINNEA BORJAS.
[2018-12-19 19:22] LABS: INR 0.9 (0.9-1.1)
[2018-12-19 19:25] LABS: ANION GAP 5 mmol/L (5-15); BLOOD UREA NITROGEN 13 mg/dL (7-18); CALCIUM 8.1 MG/DL (8.5-10.1); CARBON DIOXIDE 29 MMOL/L (21-32); CHLORIDE 103 MMOL/L (98-107); POTASSIUM 4.1 MMOL/L (3.5-5.1); SODIUM 137 MMOL/L (136-145)
[2018-12-19 19:35] LABS: ALANINE AMINOTRANSFERASE 38 U/L (12-78); ALBUMIN 3.9 G/DL (3.4-5.0); ALBUMIN/GLOBULIN RATIO 1.2 (1.0-2.7); ALKALINE PHOSPHATASE 77 U/L (46-116); ASPARTATE AMINO TRANSFERASE 19 U/L (15-37); BILIRUBIN,TOTAL 1.4 MG/DL (0.2-1.0)
[2018-12-19 19:37] LABS: BILIRUBIN,DIRECT 0.3 MG/DL (0.0-0.3)
[2018-12-19 20:00] VITALS: BP 120/72
--- NOTE | 2018-12-19 20:38 | Diagnostic Imaging Report ---
Indication: Chest pain Technique: Continuous helical transaxial imaging of the chest was obtained from the thoracic inlet to the upper abdomen during rapid intravenous contrast administration. Arterial phase of enhancement obtained. Coronal 2-D reformats were also obtained and maximum intensity projection images in multiple planes. Study obtained in a Siemens sensation [address] Automatic Exposure Control was utilized. Total Dose length Product (DLP): [address] Dose Index Volume (CTDIvol): 129.9 mGy Comparison: None Findings: The bolus is limited but there are no obvious central pulmonary emboli identified. More distal branching difficult to evaluate on this study. There are calcifications within left lateral lung consistent with old granulomatous disease. There is no infiltrate or consolidation. Lungs are essentially clear. Small hiatal hernia is present. IMPRESSION: Somewhat limited study. No central pulmonary embolus. Old granulomatous disease The CT scanner at [facility] is accredited by the [employer] and the scans are performed using dose optimization techniques as appropriate to a performed exam including Automatic Exposure control.
--- NOTE | 2018-12-19 21:11 | Diagnostic Imaging Report ---
Indication: Abdominal pain Technique: Continuous helical transaxial imaging of the abdomen and pelvis was obtained from the lung bases to the pubic symphysis during intravenous contrast administration. Coronal 2-D reformats were also obtained. Study obtained in a Siemens sensation [address] Automatic Exposure Control was utilized. Total Dose length Product (DLP): 1149.[address] Dose Index Volume (CTDIvol): 17.8 mGy Comparison: None Findings: Mildly distended fluid-filled small bowel noted throughout the abdomen may be due to enteritis or ileus. Gallbladder is unremarkable. There are diverticula demonstrated within the colon. No evidence of acute diverticulitis appreciated. Solid organs including kidneys, liver and spleen and pancreas are unremarkable. Appendix is normal. There is no free fluid. IMPRESSION: Suspected enteritis/ileus. Normal appendix. Diverticulosis of the colon The CT scanner at [facility] is accredited by the [employer] and the scans are performed using dose optimization techniques as appropriate to a performed exam including Automatic Exposure control.
--- NOTE | 2018-12-19 21:22 | Emergency Room Report ---
History of Present Illness General Chief Complaint: Back Pain-No Injury Source: Patient, Medical Record Present Illness HPI 43-year-old male with history of diabetes who is insulin-dependent and heavy tobacco smoke here complaining of 2 days of right flank pain radiating to the front as well as urinary frequency. Also complains of 1 week of pleuritic chest pain and feeling pulsation in the back. Denies anterior chest pain, pain radiation, palpitation, headache and dizziness. Has not taken medication for symptom relief. Denies any strenuous physical activity, fall or injury. Denies hematuria, nausea vomiting, diarrhea or constipation. Denies history of renal stone, renal infection. Rating his pain 10 out of 10 with radiation however denies tingling and numbness. Patient also complains of 2 days of bilateral low back pain now radiating to legs however denies saddle paresthesia , urinary and bowel incontinence. Allergies: Coded Allergies: No Known Allergies (Unverified , 09/28/12) Patient History Past Medical History: see triage record Past Surgical History: unable to obtain Pertinent Family History: none Social History: Reports: smoking Immunizations: UTD Reviewed Nursing Documentation: PMH: Agreed; PSxH: Agreed Nursing Documentation-PMH Hx Cardiac Problems: No - rheumatic fever Hx Hypertension: No - high cholesterol Hx Asthma: Yes Hx Diabetes: Yes Review of Systems All Other Systems: negative except mentioned in HPI Physical Exam Vital Signs Date Time Temp Pulse Resp B/P (MAP) Pulse Ox O2 Delivery O2 Flow Rate FiO2 12/19/18 18:03 98.2 97 18 115/76 (89) 96 Room Air Sp02 EP Interpretation: reviewed, normal General Appearance: no apparent distress, alert, GCS 15, non-toxic Head: normocephalic, atraumatic Eyes: bilateral eye normal inspection, bilateral eye PERRL ENT: hearing grossly normal, normal pharynx, no angioedema, normal voice Neck: full range of motion, supple/symm/no masses Respiratory: chest non-tender, lungs clear, normal breath sounds, no rhonchi, no wheezing, speaking full sentences Cardiovascular #1: regular rate, rhythm, no edema, no murmur Gastrointestinal: normal bowel sounds, non tender, soft, non-distended, no guarding, no hernia, no rebound Rectal: deferred Genitourinary: CVA tenderness (R) Musculoskeletal: back normal, gait/station normal, normal range of motion, non- tender, no calf tenderness, pelvis stable Neurologic: alert, oriented x3, responsive, motor strength/tone normal, sensory intact, speech normal Psychiatric: judgement/insight normal, memory normal, mood/affect normal, no suicidal/homicidal ideation Skin: no rash Lymphatic: no adenopathy Medical Decision Making PA Attestation Diagnosis and treatment plans were reviewed and discussed with my supervising physician Dr. Carrera Diagnostic Impression: Primary Impression: Abdominal pain Additional Impressions: Diverticulosis Lumbar strain Enteritis ER Course 43-year-old male with history of diabetes who is insulin-dependent and heavy tobacco smoke here complaining of 2 days of right flank pain radiating to the front as well as urinary frequency. Also complains of 1 week of pleuritic chest pain and feeling pulsation in the back. Denies anterior chest pain, pain radiation, palpitation, headache and dizziness. Has not taken medication for symptom relief. Denies any strenuous physical activity, fall or injury. Denies hematuria, nausea vomiting, diarrhea or constipation. Denies history of renal stone, renal infection. Rating his pain 10 out of 10 with radiation however denies tingling and numbness. Patient also complains of 2 days of bilateral low back pain now radiating to legs however denies saddle paresthesia , urinary and bowel incontinence. Ddx considered but are not limited to: appendicitis, cholecystis, gastritis, gastroenteritis, UTI, pyelonephritis, SBO, diverticulitis, influenza with GI manifestation, VT, pulmonary embolism Vital signs: are WNL, pt. is afebrile H&PE are most consistent with: Abdominal pain, diverticulosis, enteritis, lumbar strain ORDERS: abdominal CT, abdominal pain set, Pepcid, Bentyl, lidocaine patches ED INTERVENTIONS: NS bolus, Zofran DISCHARGE: At this time pt. is stable for d/c to home. Will provide printed patient care instructions, and any necessary prescriptions. Care plan and follow up instructions have been discussed with the patient prior to discharge. At this time it was discussed with patient to follow-up with her primary care provider within the next 24 hours no signs of obstruction noted clinically. Due to patient's no history of abdominal surgeries and no definitive CT scanning results of obstruction patient to be discharged and follow-up with primary care physician. However patient was given precautions to return to the emergency room. I discussed all of the above assessment with my supervising physician Dr. Carrera CT/MRI/US Diagnostic Results CT/MRI/US Diagnostic Results #1: Imaging Test Ordered: CT abd pelvis with contrast Impression Comparison Impression: - Minimally dilated small bowel loops measuring 3.1 cm in the left upper quadrant could represent an early obstruction in the proper clinical context, no findings of bowel ischemia or interloop fluid. -Fluid-filled distal small bowel loops could be incidental or could be seen with an infectious or inflammatory enteritis, correlate clinically. -Normal appendix. -Colonic diverticulosis without acute diverticulitis. CT/MRI/US Diagnostic Results #2: Imaging Test Ordered: CTA chest Impression No comparison Impression: -Bolus timing suboptimal for the exclusion of very embolism. -No large or central pulmonary embolism seen, evaluation for small and is pulmonary emboli extremely limited. -Old granulomatous disease in the chest. -Otherwise unremarkable study. Last Vital Signs Date Time Temp Pulse Resp B/P (MAP) Pulse Ox O2 Delivery O2 Flow Rate FiO2 12/19/18 18:03 98.2 97 18 115/76 96 Room Air Disposition: HOME, SELF-CARE Condition: Stable Additional Instructions: Due to patient's no history of abdominal surgeries and no definitive CT scanning results of obstruction patient to be discharged and follow-up with primary care physician. However patient was given precautions to return to the emergency room. I discussed all of the above assessment with my supervising physician Aliya Martinez Dec 19, 2018 21:21
[2018-12-19] MEDS ORDERED: DICYCLOMINE HCL10 MG ORAL (21:23)
[2018-12-19] MEDS ORDERED: PEPCID AC10 MG PO (21:23)
[2018-12-19] MEDS ORDERED: LIDODERM700 M1 TOPIC (21:23)
[2018-12-19 21:40] VITALS: BP 115/76
--- NOTE | 2018-12-19 21:40 | NUR ---
ER DISCHARGE NOTE: Patient is cleared to be discharged per ERMD, pt is aox4, on room air, with stable vital signs. Pt able to walk with steady gait. Discharge instructions given to patient, verbalized understanding. Pt took all belongings. ID band removed and IV removed without complications
--- NOTE | 2018-12-19 21:40 | NUR ---
Note leninone in EDM - 12/19/18 at 2207 by KDEARING ER DISCHARGE NOTE: Patient is cleared to be discharged per ERMD, pt is aox4, on room air, with stable vital signs. Pt able to walk with steady gait. Discharge instructions given to mother, verbalized understanding. Pt took all belongings. ID band removed, Iv removed without complication.
== END 2018-12-19 21:40 | disposition home or self-care (01) ==
LOC: EMR 18:38
DX: R10.9 Unspecified abdominal pain (principal); K57.90 Diverticulosis of intestine, part unspecified, without perforation or abscess without bleeding; S39.012A Strain of muscle, fascia and tendon of lower back, initial encounter; K52.9 Noninfective gastroenteritis and colitis, unspecified; X58.XXXA Exposure to other specified factors, initial encounter; Y92.9 Unspecified place or not applicable; F17.210 Nicotine dependence, cigarettes, uncomplicated; E78.00 Pure hypercholesterolemia, unspecified; E11.9 Type 2 diabetes mellitus without complications
CPT/HCPCS: 36415; 71275; 74177; 80053; 80307; 81001; 82248; 83690; 83880; 84484; 85025; 85610; 85730; 93005; 96361; 96374; J2405; J8540; Q9967; Z7502; 99284; J7030

== ENCOUNTER 2019-10-18 05:56 | Emergency (ER) | payer MEDICAID ==
[~2019-10-18] VITALS: Ht 170.2 cm; Wt 90.7 kg
[~2019-10-18 05:56] MED LIST changes: +DICYCLOMINE HCL10 MG ORAL; +LIDODERM700 M1 TOPIC; +PEPCID AC10 MG PO
--- NOTE | 2019-10-18 06:05 | Emergency Room Report ---
History of Present Illness General Chief Complaint: To Be Triaged Source: Patient Present Illness HPI 43-year-old male with PMHx of diabetes, dyslipidemia, obesity, tobacco abuse presents with chief complaint of L sided chest pain radiating to L arm/ jaw. Pain was intermittent since 2 days ago but worse this morning and constant. Location is L chest. Denies hx of cardiac evaluation, but states he is worried because he has long family hx of cardiac in his family including his grandmother and aunts. Denies maternal/paternal sudden cardiac/ or premature cardiac . Denies hemoptysis, fever, SOB, n/v/d, weakness, leg swelling, recent travel/ trauma, sx or immobilization. The patient's symptoms were gradual onset, severity was moderate, duration since 2 days . Quality: pressure Past medical history: DM, dyslipidemia, obesity Past surgical history: Denies Smoking: ++ tobacco Alcohol use: Denies Drug use: Denies Review of systems: CONST: No fevers or chills, No night sweats PULMONARY: No productive cough, No shortness of breath CARDIAC: ++ chest pain, No palpitations GI: No vomiting, No diarrhea , No melena_or_BRBPR : No dysuria, No hematuria, No discharge NEURO: No new_focal_weakness_or_numbness, No confusion, No vision changes 14 point Review of Systems is otherwise negative except per HPI Physical Exam: GENERAL: Awake_alert_ nontoxic, no acute distress Spo2 99% on RA -normal EYES: Extraocular muscles are intact. Conjunctivae clear. Lids without swelling ENT: External nose and ear normal_in_appearance. Oropharynx clear. Head_ atraumatic, Moist_oral_mucosa NECK: No JVD. No meningismus. No thyromegaly. Supple. Trachea midline RESP: Normal respiratory effort. Symmetric rise. No stridor. Clear_to_ auscultation_No_rales_No_wheezes CARDIAC: Regular rate and regular rhytm. No_significant pedal edema. ABDOMEN: Soft. Nondistended. Nontender_No_rebound_or_guarding. MSK: Normal muscle tone, without rigidity. Extremities without asymmetric deformity or swelling. SKIN: Warm and dry. No visible cyanosis or pallor NEUROLOGIC: Alert, oriented x3. Motor_and_sensation_grossly_intact. No truncal ataxia. Gait_normal Psych: Normal mood and affect, normal judgment and insight - COORDINATION OF CARE Case was discussed with: Patient , Patient's Physician Any labs and imaging that were ordered were interpreted as part of the medical decision making: Medical Decision Making/Plan: Differential diagnosis includes acute myocardial infarction, acute coronary syndrome and unstable angina, pulmonary embolism, pneumothorax, pneumonia, and aortic dissection, among others. Patient is currently well appearing with stable vitals. EKG shows NSR. No evidence of STEMI, and initial troponin is negative. Chest xray shows NAD. No evidence of pneumothorax, pneumonia, or significant pleural effusion. Labs show trop negative x 1. Mild elevation of BNP. HEART score of 4 for cardiac RF, non-specific changes on EKG, and typical acute sounding CP. Aspirin given. However, given that chest pain is currently resolved, risks likely outweigh benefits of IV heparin at this time, so deferred. Also got nitro and morphine with relief of pain. The pain is not classic for pericarditis or myocarditis, and the patient has no significant risk factors for a pericardial effusion and has stable vitals signs , unlikely to have tamponade. Pain is not likely to be pulmonary embolism, patient has no significant PE risk factors. The presentation is not consistent with dissection, pain is not severe, radiating to back, or tearing in nature. Has normal bilateral radial and pedal pulses. However given patients presentation and risk factors, patient will be admitted for serial troponins and risk stratification and evaluation for likely stress testing. This patient appears to be a suitable candidate for transfer to telemetry floor at this time with orders from the admitting physician who is aware of the patient's evaluation, ancillary test findings, and current condition, and agrees with treatment and disposition. I spoke with Dr. Jerez, and reviewed the patients presentation, workup, results, and treatment. They will admit the patient for further care and evaluation, and assume care of the patient at this time. Pt will be TRANSFERRED to [facility]. Allergies: Coded Allergies: No Known Allergies (Unverified , 09/28/12) Nursing Documentation-PMH Hx Cardiac Problems: No - rheumatic fever Hx Hypertension: No - high cholesterol Hx Asthma: Yes Hx Diabetes: Yes Physical Exam Sp02 EP Interpretation: reviewed, normal Medical Decision Making Diagnostic Impression: Primary Impression: Chest pain Additional Impressions: HTN (hypertension) Diabetes HLD (hyperlipidemia) Tobacco abuse Obesity (BMI 30.0-34.9) EKG Diagnostic Results PA Scribe Text 12-lead EKG (interpreted by me) Time: 06 12 Indication: Rhythm analysis Tracing visualized and Interpreted by me. Rhythm: Normal sinus rhythm Rate: 68 bpm QTc: 431 Morphology: No_significant_ST_elevations_or_depressions, No STEMI Impression: Normal_sinus_rhythm_without_significant_abnormality Rhythm Strip Diag. Results Rhythm Strip Time: 06:18 EP Interpretation: yes Rate: 78 Rhythm: NSR, no PVC's, no ectopy Chest X-Ray Diagnostic Results Chest X-Ray Diagnostic Results : NOBLE Valdezibjames Srinivasan Chest X-Ray: Views: 1 view(s) Indication: Chest pain Findings: Normal heart size. Mediastinum normal. No infiltrate. Impression: No acute disease The X-ray(s) were independently viewed and interpreted contemporaneously Electronically signed by Kisha martinez DO Reevaluation Time: 06:38 Status: improved Disposition: ADMITTED INPATIENT - TRANSFER [facility]; accepting MD Jerez Admit Decision Time: 06:18 Condition: Stable Kisha Gill D.O. Oct 18, 2019 06:05
--- NOTE | 2019-10-18 06:20 | NUR ---
ED Nurse Note: Patient walked in from home c/o left sided sharp chest pain radiating to left arm for 2 days. Patient aao x 4 and ambulatory with steady gait. Patient also reports difficulty breathing with the chest pain. Patient denies vomiting or diarrhea, reports some nausea. Patient reports no precipitating event. Patient changed into gown and placed on cardiac sonographer. No acute distress noted during assessment.
[2019-10-18 06:22] VITALS: BP 110/68
--- NOTE | 2019-10-18 06:22 | NUR ---
ED Nurse Note: Xray at bedside
[2019-10-18 06:26] LABS: BASOPHILS % (AUTO) 1.8 % (0.0-2.0); EOSINOPHILS % (AUTO) 2.3 % (0.0-3.0); HEMATOCRIT 46.6 % (42.0-52.0); HEMOGLOBIN 16.1 G/DL (14.2-18.0); LYMPHOCYTES % (AUTO) 28.1 % (20.0-45.0); MEAN CORPUSCULAR VOLUME 85 FL (80-99); MONOCYTES % (AUTO) 5.7 % (1.0-10.0); NEUTROPHILS % (AUTO) 62.1 % (45.0-75.0); PLATELET COUNT 233 K/UL (150-450); RED BLOOD COUNT 5.48 M/UL (4.70-6.10); RED CELL DISTRIBUTION WIDTH 11.2 % (11.6-14.8); WHITE BLOOD COUNT 8.8 K/UL (4.8-10.8)
[2019-10-18] MEDS ORDERED: Nitroglycerin 2% oint pkt TOPIC ONE (06:30)
[2019-10-18 06:37] LABS: ANION GAP 9 mmol/L (5-15); BLOOD UREA NITROGEN 12 mg/dL (7-18); CALCIUM 8.6 MG/DL (8.5-10.1); CARBON DIOXIDE 26 MMOL/L (21-32); CHLORIDE 105 MMOL/L (98-107); CREATININE 0.9 MG/DL (0.55-1.30); POTASSIUM 3.8 MMOL/L (3.5-5.1); SODIUM 140 MMOL/L (136-145)
[2019-10-18 06:49] LABS: ALANINE AMINOTRANSFERASE 33 U/L (12-78); ALBUMIN 3.6 G/DL (3.4-5.0); ALBUMIN/GLOBULIN RATIO 1.1 (1.0-2.7); ALKALINE PHOSPHATASE 70 U/L (46-116); ASPARTATE AMINO TRANSFERASE 17 U/L (15-37); BILIRUBIN,TOTAL 0.9 MG/DL (0.2-1.0)
[2019-10-18 07:03] VITALS: BP 110/77
--- NOTE | 2019-10-18 07:03 | NUR ---
ED Nurse Note: endorsement received from SUAD Damon. Pt is resting in bed, pending COVID results. IV site patent and intact. Pt reports 7/10 pain. pt VSS. No pending orders at this time.
--- NOTE | 2019-10-18 08:02 | NUR ---
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 Pt VSS. IV site intact and patent. pt has all belongings. family has been informed of transfer. Telephone endorsement given to Arley Pacheco from [facility]
[2019-10-18 08:04] VITALS: BP 115/81
--- NOTE | 2019-10-18 08:38 | Diagnostic Imaging Report ---
EXAM: XR Chest, 1 View CLINICAL HISTORY: 43-year-old male with PMHx of diabetes, dyslipidemia, obesity, tobacco abuse presents with chief complaint of L sided chest pain radiating to L arm/jaw. Pain was intermittent since 2 days ago but worse this morning and constant. Location is L chest. Denies hx of cardiac evaluation, but states he is worried because he has long family hx of cardiac in his family including his grandmother and aunts. Denies maternal/paternal sudden cardiac/ or premature cardiac . Denies hemoptysis, fever, shortness of breath, n/v/d, weakness, leg swelling, recent travel/trauma, sx or immobilization. The patient's symptoms were gradual onset, severity was moderate, duration since 2 days. Quality: pressure TECHNIQUE: Frontal view of the chest. COMPARISON: Chest x-ray dated 03/23/18. CTA of the chest dated 12/19/18 FINDINGS: Lungs: 5 mm calcified granuloma in the periphery of the mid left lung. The lungs otherwise appear clear. No focal consolidation. Pleural space: Unremarkable. The costophrenic angles are sharp. No visible pneumothorax. Heart: Unremarkable. No cardiomegaly. Mediastinum: Unremarkable. Bones/joints: Unremarkable. Tubes, lines and devices: Telemetry leads overlie the thorax. IMPRESSION: No acute radiographic findings.
== END 2019-10-18 08:05 | disposition short-term general hospital (02) ==
LOC: EMR 06:13
DX: R07.9 Chest pain, unspecified (principal); I10 Essential (primary) hypertension; E11.9 Type 2 diabetes mellitus without complications; E78.5 Hyperlipidemia, unspecified; E66.9 Obesity, unspecified; F17.200 Nicotine dependence, unspecified, uncomplicated; E78.00 Pure hypercholesterolemia, unspecified; Z68.31 Body mass index [BMI] 31.0-31.9, adult
CPT/HCPCS: 36415; 71045; 80053; 83690; 83880; 84484; 85025; 93005; 96374; J2405; U0002; Z7502; 99284